=== PATIENT | male | born 1950 | race Caucasian/White ===

== ENCOUNTER → 2017-01-31 | Outpatient (CLI) | payer OTHER ==
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
== END | disposition home or self-care (01) ==
LOC: CRAD 12:31
DX: M25.552 Pain in left hip (principal); Z96.641 Presence of right artificial hip joint
CPT/HCPCS: 73502